=== PATIENT | female | born 1955 | race Caucasian/White ===

== ENCOUNTER 2016-08-26 10:37 | Emergency (ER) | payer MEDICAID ==
[2016-08-26] MEDS ORDERED: ACETAMINOPHEN 325 MG TABLET PO STA (12:31)
[2016-08-26] MEDS ORDERED: ACETAMINOPHEN 325 MG TABLET PO ONE (12:33)
== END 2016-08-26 12:40 | disposition left against medical advice (07) ==
DX: F23 Brief psychotic disorder (principal); R21 Rash and other nonspecific skin eruption; L98.499 Non-pressure chronic ulcer of skin of other sites with unspecified severity; R05 Cough; Z59.0 Homelessness; I10 Essential (primary) hypertension; F17.200 Nicotine dependence, unspecified, uncomplicated; Z85.3 Personal history of malignant neoplasm of breast; Z53.20 Procedure and treatment not carried out because of patient's decision for unspecified reasons

== ENCOUNTER 2016-08-27 | Outpatient (CLI) | payer MEDICAID | END 2016-08-27 01:03 | disposition critical access hospital (66) | CPT/HCPCS: A0425; A0429 ==

== ENCOUNTER 2016-08-27 | Emergency (ER) | payer MEDICAID | END 2016-08-27 02:29 | disposition home or self-care (01) ==